=== PATIENT | male | born 1960 | race Caucasian/White ===

== ENCOUNTER 2020-10-28 06:52 | Emergency (ER) | payer BC ==
[2020-10-28] MEDS ORDERED: Proparacaine 0.5% Ophth Soln 15 ML Bottle EYEBOTH STA (07:10)
--- NOTE | 2020-10-28 07:24 | EDM.PDOC ---
ED HPI GENERAL MEDICAL PROBLEM - General Chief Complaint: Eye Problems Stated Complaint: SOMETHING IN R EYE Time Seen by Provider: 10/28/20 07:11 Source of Information: Reports: Patient, RN Notes Reviewed History Limitations: Reports: No Limitations - History of Present Illness INITIAL COMMENTS - FREE TEXT/NARRATIVE: 60-year-old gentleman presents emergency department today with complaint of swollen right eyelid excessive tearing and crusting this morning. He states he denies any known foreign body he has been doing any grinding metal or woodworking lately he has no troubles with his vision it is tender to the touch over the eyelid no fevers - Related Data Allergies Allergy/AdvReac Type Severity Reaction Status Date / Time No Known Allergies Allergy Verified 10/28/20 07:02 Home Meds: Home Meds EPINEPHrine [Epipen 2-[place]] 0.3 mg IJ ONETIME #2 ml 09/09/16 [Rx] bisacodyL [Dulcolax] 10 mg RC DAILY PRN 09/09/16 [History] Omeprazole 40 mg PO ACBREAKFAST 10/28/20 [History] Past Medical History HEENT History: Reports: Impaired Vision Respiratory History: Reports: COPD Gastrointestinal History: Reports: GERD Endocrine/Metabolic History: Reports: Obesity/BMI 30+ - Past Surgical History Head Surgeries/Procedures: Reports: None HEENT Surgical History: Reports: None Respiratory Surgical History: Reports: None GI Surgical History: Reports: None Endocrine Surgical History: Reports: None Dermatological Surgical History: Reports: None Social & Family History - Tobacco Use Tobacco Use Status *Q: Never Tobacco User Second Hand Smoke Exposure: No - Caffeine Use Caffeine Use: Reports: Coffee - Recreational Drug Use Recreational Drug Use: No ED ROS GENERAL - Review of Systems Review Of Systems: See Below Constitutional: Reports: No Symptoms. Denies: Fever HEENT: Reports: Eye Discharge. Denies: Eye Pain ED EXAM GENERAL W FULL EYE - Physical Exam Exam: See Below Exam Limited By: No Limitations General Appearance: Alert, WD/WN, No Apparent Distress Eye Exam: Right Eye: Other (Upper eyelid inflamed), Bilateral Eye: EOMI, Normal Inspection, PERRL Eyelids: Right: Edema, Erythema, Lid Everted for Exam, Left: Normal Appearance Conjunctiva & Sclera: Bilateral: Normal Appearance Cornea Exam: Bilateral: Normal Appearance Extraocular Movements: Bilateral: Intact Pupils: Normal Accommodation Pupillary Size: Bilateral: 3 mm Pupillary Reaction: Bilateral: Brisk Course - Vital Signs Last Recorded V/S: Last Vital Signs Temp 98.1 F 10/28/20 07:05 Pulse 95 10/28/20 07:05 Resp 16 10/28/20 07:05 BP 178/113 H 10/28/20 07:05 Pulse Ox 96 10/28/20 07:05 - Orders/Labs/Meds Meds: Medications Discontinued Medications Generic Name Dose Route Start Last Admin Trade Name Gonzalo PRN Reason Stop Dose Admin Proparacaine HCl 1 ml 10/28/20 07:10 10/28/20 07:13 Proparacaine 0.5% Ophth Soln 15 Ml Bottle EYEBOTH 10/28/20 07:11 1 ml NOW STA Administration Departure - Departure Time of Disposition: 07:23 Disposition: Home, Self-Care 01 Condition: Fair Clinical Impression: Blepharitis of right upper eyelid Qualifiers: Blepharitis type: unspecified type Qualified Code(s): H01.001 - Unspecified blepharitis right upper eyelid - Discharge Information Instructions: Blepharitis, Blepharitis, [id number] Referrals: PCP,None [Primary Care Provider] - Additional Instructions: Start antibiotics full course of 7 days, use warm compresses as well to help reduce the edema or swelling in the eye, please follow-up with an eye care provider in the next 3 to 4 days if no improvement call or return to the emergency department worsening of symptoms Sepsis Event Note (ED) - Evaluation Sepsis Screening Result: No Definite Risk - Focused Exam Vital Signs: Vital Signs Temp Pulse Resp BP Pulse Ox 10/28/20 07:05 98.1 F 95 16 178/113 H 96 10/28/20 07:04 98.1 F 95 16 178/113 H 96 - Assessment/Plan Plan: Assessment Acuity = acute Site and laterality = blepharitis right upper eyelid Etiology = unknown Manifestations = none Location of injury = Home Lab values = none Plan Handout provided on blepharitis, antibiotics erythromycin ophthalmic every 4 hours x7 days follow-up with eye care provider in 3 to 4 days if no improvement This note was dictated using [employer] [facility] voice recognition software please call with any questions on syntax or grammar.
== END 2020-10-28 07:29 | disposition home or self-care (01) ==
LOC: JP.ED 06:52
DX: H01.001 Unspecified blepharitis right upper eyelid (principal); J44.9 Chronic obstructive pulmonary disease, unspecified; K21.9 Gastro-esophageal reflux disease without esophagitis; E66.9 Obesity, unspecified; Z68.34 Body mass index [BMI] 34.0-34.9, adult
CPT/HCPCS: 99283; A9270